=== PATIENT | female | born 1995 | race Two or more races ===

== ENCOUNTER 2019-09-25 20:54 | Observation (INO) | payer SELFPAY ==
[2019-09-25] MEDS ORDERED: IV RINGERS,LACTATED 500ML 1,000 ML IV ONE (22:15)
[2019-09-25] MEDS ORDERED: IV RINGERS,LACTATED 1000ML 1,000 ML IV SCH (22:30)
[2019-09-25] MEDS ORDERED: hydrOXYzine 25 MG TABLET PO ONE (22:30)
[2019-09-25 23:16] LABS: BILIRUBIN,URINE NEGATIVE (NEG); CLARITY,URINE CLEAR; COLOR,URINE YELLOW; NITRITE,URINE NEGATIVE (NEG); PH,URINE 6.5; PROTEIN,URINE NEGATIVE (NEG-TRACE)
[2019-09-25 23:33] LABS: BACTERIA,URINE MANY /HPF (0-FEW); RBC,URINE 0 /HPF (0-2)
[2019-09-25 23:34] LABS: SQUAMOUS EPITHELIAL CELL,UR MANY /LPF; YEAST,URINE PRESENT /HPF
== END 2019-09-25 23:59 | disposition home or self-care (01) ==
LOC: 3 SO LND 20:54
PROVIDERS: ADMIT Obstetrics & Gynecology; ATTEND Obstetrics & Gynecology
DX: O26.893 Other specified pregnancy related conditions, third trimester (principal); R10.9 Unspecified abdominal pain; Z3A.34 34 weeks gestation of pregnancy
CPT/HCPCS: 81001; 87086; G0378; G0379; J7120